=== PATIENT | female | born 1945 | race Hispanic/Latino ===

== ENCOUNTER 2017-12-08 11:35 | Outpatient (CLI) | payer MEDICARE, BC | END 2017-12-08 11:36 | disposition home or self-care (01) | LOC: BICMAMMO 11:35 | PROVIDERS: ATTEND Internal Medicine | DX: Z12.31 Encounter for screening mammogram for malignant neoplasm of breast (principal) | CPT/HCPCS: 77063; 77067 ==

== ENCOUNTER 2018-02-12 00:55 | Emergency (ER) | payer MEDICARE, BC ==
[2018-02-12 01:38] LABS: #Basophils 0.1 thou/uL (0.0-0.2); #Eosinphils 0.1 thou/uL (0.0-0.7); #Lymphocytes 2.3 thou/uL (1.20-3.40); #Monocytes 0.9 thou/uL (0.11-0.59); #Neutrophils 12.7 thou/uL (1.40-6.50); %Basophils 0.6 % (0.0-1.0); %Eosinophils 0.6 % (0.0-10.0); %Lymphocytes 14.4 % (21.0-51.0); %Monocytes 5.5 % (0.0-10.0); %Neutrophils 78.9 % (42.0-75.0); Hemoglobin 14.1 g/dL (12.0-16.0); Mean Corpuscular HGB CONC 35.5 g/dL (32.0-36.0); Mean Corpuscular Hemoglobin 32.3 pg (27.0-31.0); Mean Platelet Volume 6.8 fL (7.4-10.4); Platelet Count 161 thou/uL (130-400); RBC Distribution Width 12.1 % (11.5-14.5); Red Blood Cell (RBC) Count 4.36 mill/uL (4.20-5.40); White Blood Cell (WBC) Count 16.1 thou/uL (4.8-10.8)
[2018-02-12 01:38] LABS: Bilirubin Negative (Negative); Blood, Urine Trace (Negative); Clarity Clear (Clear); Glucose, Urine (Dipstick) Negative (Negative); Leukocyte Trace (Negative); Nitrite Negative (Negative); Protein, Urine (Dipstick) Negative (Neg-Trace); Specific Gravity, Urine 1.015 (1.005-1.030); Urobilinogen 0.2 mg/dL (0.2-1.0); pH, Urine 5.5 (5.0-9.0)
[2018-02-12] MEDS ORDERED: Ketorolac Tromethamine 30 MG/ML VIAL ONE (01:39)
[2018-02-12 01:43] LABS: Bacteria/HPF Rare-Few HPF (None Seen); Hyaline Casts/LPF 0-3 HYALINE CAST LPF (0-3 Hyaline); RBC/HPF 0-3 HPF (0-3); Squamous Epithelial 0-3 HPF (0-3); WBC/HPF 0-3 HPF (0-3)
[2018-02-12 01:55] LABS: ALT (SGPT) 32 U/L (8-55); AST (SGOT) 28 U/L (5-34); Albumin 4.5 g/dL (3.4-4.8); Alkaline Phosphatase 66 U/L (40-150); Anion Gap 16 mmol/L (10-20); BUN (Urea Nitrogen) 12 mg/dL (9.8-20.1); Calc. Creatinine Clearance 0 mL/min (70-130); Calcium 9.4 mg/dL (7.8-10.44); Carbon Dioxide 21 mmol/L (23-31); Chloride 104 mmol/L (98-107); Estimated GFR-MDRD 82; Globulin 3.3 g/dL (2.4-3.5); Glucose 124 mg/dL (83-110); Lipase 26 U/L (8-78); Potassium 4.1 mmol/L (3.5-5.1); Protein, Total 7.8 g/dL (6.0-8.3); Sodium 137 mmol/L (136-145)
[2018-02-12 02:04] LABS: Bilirubin, Total 0.5 mg/dL (0.2-1.2)
[2018-02-12] MEDS ORDERED: Mineral Oil ENEMA ONE (03:48)
[2018-02-12] MEDS ORDERED: Lactulose 10 GM/15 ML Oral Solution ONE (04:29)
--- NOTE | 2018-02-12 08:08 | CT ---
PRELIMINARY REPORT/[facility]/EMERGENTY AFTER-HOURS PROCEDURE EXAM: CT Abdomen and Pelvis With Intravenous Contrast EXAM DATE/TIME: Exam ordered 02/12/2018 3:01 AM CLINICAL HISTORY: 72 years old, female; Pain; Abdominal pain; Localized; Lower; Prior surgery; Surgery date: 6+ months; Surgery type: Latonya, hyst, bladder suspension +10 yrs; Patient HX: Lower abd pain and constipation TECHNIQUE: Axial computed tomography images of the abdomen and pelvis with intravenous contrast. All CT scans at this facility use one or more dose reduction techniques, viz.: automated exposure control; ma/kV adj ustment per patient size (including targeted exams where dose is matched to indication; i.e. head); or iterative reconstruction technique. Coronal reformatted images were created and reviewed. CONTRAST: 90 mL of administered intravenously. COMPARISON: No relevant prior studies available. FINDINGS: Lung bases: Unremarkable. No mass. No consolidation. Mediastinum: Moderate hiatal hernia. ABDOMEN: Liver: Unremarkable. No mass. Gallbladder and bile ducts: Prior cholecystectomy. No ductal dilation. Pancreas: Unremarkable. No mass. No ductal dilation. Spleen: Unremarkable. No splenomegaly. Adrenals: Unremarkable. No mass. Kidneys and ureters: Unremarkable. No solid mass. No hydronephrosis. Stomach and bowel: Possible rectal prolapse. No obstruction. No mucosal thickening. Appendix: Appendix not visualized. No evidence of appendicitis. PELVIS: Bladder: Unremarkable. No mass. Reproductive: Prior hysterectomy. ABDOMEN and PELVIS: Intraperitoneal space: Unremarkable. No free air. No significant fluid collection. Bones/joints: Scoliosis. No acute fracture. No dislocation. Soft tissues: Unremarkable. Vasculature: Unremarkable. No abdominal aortic aneurysm. Lymph nodes: Unremarkable. No enlarged lymph nodes. IMPRESSION: Possible rectal prolapse. Thank you for allowing us to participate in the care of your patient. Dictated and Authenticated by: Lars Ashford MD 02/12/2018 4:33 AM Central Time ([place] & [place]) FINAL REPORT CT ABDOMEN AND PELVIS WITH IV AND ORAL CONTRAST: DATE: 02/12/18. TIME: Performed on an emergency basis at 0311 hours. HISTORY: Abdominal pain. COMPARISON: 04/04/17. FINDINGS: Findings agree with the preliminary report from [facility]. Hiatal hernia. Circumferential w all thickening of the rectum with inferior migration suggesting the possibility of rectal prolapse. POS: [facility]
[2018-02-12] MEDS ORDERED: Iopamidol 370 76% 100 ML VIAL ONE (09:00)
== END 2018-02-12 04:49 | disposition home or self-care (01) ==
LOC: SCSER 00:55
DX: K59.00 Constipation, unspecified (principal); E78.5 Hyperlipidemia, unspecified; E03.9 Hypothyroidism, unspecified; K21.9 Gastro-esophageal reflux disease without esophagitis; T50.905A Adverse effect of unspecified drugs, medicaments and biological substances, initial encounter; Z79.899 Other long term (current) drug therapy; Z86.711 Personal history of pulmonary embolism
CPT/HCPCS: 74177; 80053; 81003; 81015; 83690; 85025; 96374; J1885

== ENCOUNTER 2019-01-26 11:44 | Outpatient (CLI) | payer MEDICARE, BC ==
--- NOTE | 2019-01-26 13:13 | RAD ---
F7 view radiographs of the cervical spine. HISTORY: Spinal stenosis. AP, lateral, open-mouth odontoid, flexion, extension and both oblique views of the cervical spine. The neural foramen are patent. There is minimal anterolisthesis of C4 on C5 and C5 on C6. This does not significantly change on flex ion or extension views. Disc space height loss with anterior and posterior osteophytes seen at C6-7. At this is compatible wi th changes of spondylosis. IMPRESSION: C6-7 changes of spondylosis.
--- NOTE | 2019-01-26 13:30 | MRI ---
MRI CERVICAL SPINE WITHOUT CONTRAST: Date: 01/26/19 Multiplanar, multisequential imaging of cervical spine obtained. INDICATION: Spinal stenosis of cervical region. Neck pain. FINDINGS: There is mild wedging of the C6 vertebra. Otherwise the cervical vertebra maintain normal height. Deg enerative changes are present with degenerative spurring most prominent at C5-6 and C6-7 anteriorly. There is slight anterolisthesis at C4-5 and C5-6 measured in the 2-3 mm range. Findings at each level are described: At C2-3, no significant disc bulge or spondylosis. Anterior subarachnoid space is well maintained. At C3-4, no significant disc bulge or spondylosis. No spinal stenosis. At C4-5, mild disc bulge and spondylosis flatten the thecal sac and mildly efface the anterior subara chnoid space. The anterior subarachnoid space is preserved, however, and there is no cord impingement . There is mild right foraminal encroachment due to facet and uncinate hypertrophy. At C5-6, slight anterolisthesis as noted above. Posterior disc bulge and spondylosis flatten the thec al sac. However, the anterior subarachnoid space is preserved. No significant foraminal stenosis, alt kris there is bilateral facet hypertrophy. At C6-7, there are degenerative disc changes with mild loss of disc space. Posterior disc bulge and s pondylosis indent the thecal sac and efface the anterior subarachnoid space. No significant cord impi ngement. There is right foraminal stenosis secondary to facet and uncinate hypertrophy. At C7-T1, no significant disc bulge or spondylosis. The cervical cord signal appears normally maintained. IMPRESSION: Posterior disc bulge and spondylosis at C4-5, C5-6, and C6-7 as described above. Findings are most pr ominent at C6-7 as noted above. POS: [facility]
== END 2019-01-26 11:45 | disposition home or self-care (01) ==
LOC: BICMRI 11:44
PROVIDERS: ATTEND Anesthesiology Pain Medicine
DX: M48.02 Spinal stenosis, cervical region (principal); M47.812 Spondylosis without myelopathy or radiculopathy, cervical region; M50.921 Unspecified cervical disc disorder at C4-C5 level
CPT/HCPCS: 72052; 72141

== ENCOUNTER 2019-03-14 15:58 | Outpatient (CLI) | payer MEDICARE, BC ==
--- NOTE | 2019-03-14 16:26 | RAD ---
XR Lumbar Spine Min 4 View: 03/14/2019 12:00 AM CLINICAL INDICATION: Spondylosis without myelopathy COMPARISON: None. FINDINGS: Fracture:No fracture. Arthropathy:Moderate multilevel degenerative change is present. Multilevel endplate degeneration, wit h disc space narrowing and marginal osteophyte formation present. There is multilevel facet osteoarthritis. Grade 1 spondylolisthesis involves the L4-5 level. No significant abnormal translatio nal motion. Levoscoliosis is centered at the L2 level. IMPRESSION: Multilevel degenerative change, with spondylolisthesis at L4-5. No obvious, abnormal translational mo tion.
== END 2019-03-14 15:59 | disposition home or self-care (01) ==
LOC: BICRAD 15:58
PROVIDERS: ATTEND Anesthesiology Pain Medicine
DX: M47.816 Spondylosis without myelopathy or radiculopathy, lumbar region (principal); M43.16 Spondylolisthesis, lumbar region
CPT/HCPCS: 72110

== ENCOUNTER 2019-06-08 12:09 | Outpatient (CLI) | payer MEDICARE, BC ==
--- NOTE | 2019-06-08 14:00 | MRI ---
LUMBAR SPINE MRI WITHOUT CONTRAST: 06/08/19 HISTORY: Lumbar radiculopathy. Low back pain, radiating down the left lower extremity x2 weeks. Occasional inc ontinence. CORRELATION: Lumbar spine radiograph series 03/14/19. FINDINGS: Appropriate T1 narrow signal intensity of the lumbar vertebrae. Lumbar spine vertebral body height is maintained. No fracture. No significant STIR hyperintensity to suggest vertebral body edema or ligam entous injury. Intrinsic T1 and T2 hyperintensity involving the L1 vertebral body likely representing a hemangioma. Appropriate signal intensity of the paraspinal muscles. The visualized solid organs are unremarkable. Conus medullaris terminates at the T12-L1 disc space level. T12-L1: Desiccation with moderate loss of disc space height. Broad based disc bulge abuts the thecal sac. Mild central canal stenosis. Moderate right and left foraminal narrowing. L1-L2: Mild loss of disc space height. There is a right paracentral disc bulge that abuts the thecal sac. No significant central canal stenosis. Right neural foramen is mildly narrowed. Left neural fora men is patent. L2-L3: Mild loss of disc space height. Broad based disc bulge abuts the thecal sac. Ligamentum flavum thickening. There is asymmetric right facet hypertrophy. No significant central canal stenosis. Mode rate right foraminal narrowing. Left neural foramen is patent. There is asymmetric right facet hypert rophy. L3-L4: Moderate loss of disc space height. There is a broad based disc bulge that abuts the thecal sa c. Ligamentum flavum thickening and facet hypertrophy are present. Narrowing of the left subarticular zone. Mass effect without obscuration of the traversing left L4 nerve root. Right neural foramen is patent. Mild left foraminal narrowing. L4-L5: 5.6 mm of anterolisthesis of L4 upon L5. Mild loss of disc space height. Broad based disc bulg e, ligamentum flavum thickening, and facet hypertrophy results in mild stenosis of the thecal sac. Na rrowing of both subarticular zones secondary to disc material and posterior element hypertrophy. Part ial obscuration of bilateral traversing L5 nerve roots. Right neural foramen is patent. Mild to moder ate left foraminal narrowing. L5-S1: Adequate disc hydration. Disc material abuts but does not obscure either traversing S1 nerve root. No significant central canal stenosis. Bilateral facet hypertrophy. Right neural foramen is pat ent. Mild to moderate left neural foraminal narrowing. IMPRESSION: 1. Levorotatory scoliosis lumbar spine. 2. Degenerative changes of the lumbar spine as detailed above. There are varying degrees of neur al foraminal narrowing. No evidence of high grade central canal stenosis. POS: [facility]
== END 2019-06-08 12:10 | disposition home or self-care (01) ==
LOC: SCSMRI 12:09
PROVIDERS: ATTEND Anesthesiology Pain Medicine
DX: M47.26 Other spondylosis with radiculopathy, lumbar region (principal); M41.9 Scoliosis, unspecified
CPT/HCPCS: 72148